=== PATIENT | male | born 1980 | race Caucasian/White ===

== ENCOUNTER 2019-09-05 16:30 | Emergency (ER) | payer OTHER ==
--- NOTE | 2019-09-05 17:41 | RAD ---
TWO VIEWS CHEST: 09/05/19 PROVIDED CLINICAL HISTORY: Cough and shortness of breath. FINDINGS: Cardiac and mediastinal silhouette is within normal limits. Lungs appear clear. No pleural fluid or p neumothorax apparent. IMPRESSION: No evidence for an acute cardiopulmonary process. POS: [facility]
== END 2019-09-05 17:43 | disposition home or self-care (01) ==
LOC: ERS 16:30
DX: J06.9 Acute upper respiratory infection, unspecified (principal)
CPT/HCPCS: 71046

== ENCOUNTER 2019-09-07 01:10 | Emergency (ER) | payer OTHER ==
[2019-09-07 01:48] LABS: #Basophils 0.1 thou/uL (0.0-0.2); #Eosinphils 0.1 thou/uL (0.0-0.7); #Lymphocytes 3.1 thou/uL (1.20-3.40); #Monocytes 0.8 thou/uL (0.11-0.59); #Neutrophils 7.1 thou/uL (1.40-6.50); %Basophils 1.3 % (0.0-1.0); %Eosinophils 1.3 % (0.0-10.0); %Lymphocytes 27.7 % (21.0-51.0); %Monocytes 7.2 % (0.0-10.0); %Neutrophils 62.5 % (42.0-75.0); Hemoglobin 16.9 g/dL (14.0-18.0); Mean Corpuscular HGB CONC 34.7 g/dL (32.0-36.0); Mean Corpuscular Hemoglobin 31.2 pg (27.0-31.0); Mean Platelet Volume 8.7 fL (7.4-10.4); Platelet Count 285 thou/uL (130-400); RBC Distribution Width 11.5 % (11.5-14.5); Red Blood Cell (RBC) Count 5.41 mill/uL (4.70-6.10); White Blood Cell (WBC) Count 11.3 thou/uL (4.8-10.8)
[2019-09-07 02:10] LABS: ALT (SGPT) 20 U/L (8-55); AST (SGOT) 17 U/L (5-34); Alkaline Phosphatase 48 U/L (40-110); Anion Gap 18 mmol/L (10-20); BUN (Urea Nitrogen) 19 mg/dL (8.9-20.6); Bilirubin, Total 1.9 mg/dL (0.2-1.2); Calc. Creatinine Clearance 0 mL/min (70-130); Carbon Dioxide 20 mmol/L (22-29); Chloride 104 mmol/L (98-107); Estimated GFR-MDRD 79; Globulin 3.3 g/dL (2.4-3.5); Glucose 99 mg/dL (70-105); Potassium 3.4 mmol/L (3.5-5.1); Protein, Total 8.3 g/dL (6.0-8.3); Sodium 139 mmol/L (136-145)
--- NOTE | 2019-09-07 07:34 | RAD ---
EXAM: Single view of the chest HISTORY: Shortness of breath COMPARISON: 09/05/2019 FINDINGS: Single view of the chest shows a normal sized cardiomediastinal silhouette. There is no cheryl dence of consolidation, mass, or pleural effusion. The bones are unremarkable. IMPRESSION: No evidence of acute cardiopulmonary disease
--- NOTE | 2019-09-08 13:20 | EKG ---
Test Reason : EMERGENCY Blood Pressure : / mmHG Vent. Rate : 087 BPM Atrial Rate : 087 BPM P-R Int : 186 ms QRS Dur : 086 ms QT Int : 386 ms P-R-T Axes : 073 -03 040 degrees QTc Int : 464 ms Normal sinus rhythm Possible Left atrial enlargement Inferior infarct , age undetermined Abnormal ECG Confirmed by TONI HERNANDEZ ([id number]), web editor ANNELIESE WILLIS ([id number]) on 09/08/2019 1:19:51 PM Referred By: Confirmed By:TONI Arthur
== END 2019-09-07 03:25 | disposition home or self-care (01) ==
LOC: ERS 01:10
DX: R06.02 Shortness of breath (principal)
CPT/HCPCS: 71045; 80053; 85025; 85379; 93005; 96360; 96361